=== PATIENT | female | born 1985 | race Caucasian/White ===

== ENCOUNTER 2016-10-24 11:43 | Emergency (ER) | payer SELFPAY ==
[~2016-10-24] VITALS: Ht 157.5 cm; Wt 72.6 kg
[2016-10-24 12:29] LABS: BILIRUBIN,URINE NEGATIVE (NEG); GLUCOSE,URINE NEGATIVE (NEG); NITRITE,URINE NEGATIVE (NEG); PH,URINE 5.5; PROTEIN,URINE NEGATIVE (NEG-TRACE); UROBILINOGEN,URINE 0.2 mg/dL (0.2 mg/dL)
[2016-10-24] MEDS ORDERED: IV NORMAL SALINE 1000ML BAG 1,000 ML IV ONE (12:30)
[2016-10-24] MEDS ORDERED: ONDANSETRON PF 4 MG/2 ML VIAL. IV ONE (12:30)
[2016-10-24] MEDS ORDERED: KETOROLAC TROMETHAMINE 30 MG/ML INJ. IV ONE (12:30)
[2016-10-24] MEDS ORDERED: MORPHINE SULFATE 10 MG/ML VIAL. IV ONE (12:30)
--- NOTE | 2016-10-24 12:37 | RAD ---
CT abdomen and pelvis without contrast History: Hematuria, right flank pain since previous day. Comparison: None. Technique: Helical CT of the abdomen and pelvis was performed without intravenous or oral contrast. Axial, sagittal, and coronal reconstructions were obtained. One or more of the following individualized dose reduction techniques were utilized for the study: Automated exposure control Adjustment of mA and/or kV according to patient's size Use of iterative reconstruction technique. Findings: Evaluation of the solid organs is limited by lack of intravenous contrast. Evaluation of enteric structures may be limited by lack of oral contrast. Liver, spleen, pancreas, gallbladder, and bilateral adrenal glands are unremarkable. There is no evidence of bowel obstruction. No free air or significant free fluid is identified in the abdomen or pelvis. Appendix is not confidently identified. Urinary bladder is unremarkable. Bilateral nephrolithiasis is seen. Inferior pole of the right kidney demonstrates nonobstructive stone measuring 2 mm. The left kidney demonstrates presence of 3 nonobstructive stones ranging in size from 3 to 5 mm. Both kidneys demonstrate mildly increased density of the renal pyramids, suggesting medullary nephrocalcinosis. Both ureters are free of stone or obstruction. Impression: 1. No acute abnormality identified in the abdomen or pelvis. 2. Bilateral nonobstructive nephrolithiasis. Medullary nephrocalcinosis.
[2016-10-24 12:38] LABS: BASO % 0 % (0-3); EOS % 2 % (0-3); HEMATOCRIT 38.7 % (36.0-47.0); HEMOGLOBIN 13.4 g/dL (12.0-15.5); LYMPH % 16 % (24-48); MEAN CORPUSCULAR HEMOGLOBIN 33 pg (25-35); MEAN CORPUSCULAR HGB CONC 35 g/dL (31-37); MEAN CORPUSCULAR VOLUME 96 fL (79-100); MONO % 8 % (0-9); NEUT % 74 % (31-73); PLATELET COUNT 248 x10^3/uL (140-400); RED BLOOD COUNT 4.03 x10^6/uL (3.50-5.40); RED CELL DISTRIBUTION WIDTH 13.1 % (11.5-14.5); WHITE BLOOD COUNT 6.1 x10^3/uL (4.0-11.0)
[2016-10-24 12:39] LABS: CALCIUM 8.8 mg/dL (8.5-10.1); CREATININE 0.7 mg/dL (0.6-1.0); POTASSIUM 3.6 mmol/L (3.5-5.1)
[2016-10-24 12:45] LABS: ALBUMIN 3.4 g/dL (3.4-5.0); ALBUMIN/GLOBULIN RATIO 0.9 (1.0-1.7); TOTAL BILIRUBIN 0.8 mg/dL (0.2-1.0); TOTAL PROTEIN 7.1 g/dL (6.4-8.2)
[2016-10-24 12:50] LABS: BACTERIA,URINE MANY /HPF (0-FEW); RBC,URINE 0 /HPF (0-2); SQUAMOUS EPITHELIAL CELL,UR MANY /LPF
[2016-10-24] MEDS ORDERED: CIPROFLOXACIN 400MG PREMIX 200 ML IV ONE (13:15)
[2016-10-24 13:56] VITALS: BP 120/78
[2016-10-24] MEDS ORDERED: HYDR-971 PO (14:16)
[2016-10-24] MEDS ORDERED: CIPR500T94 PO (14:16)
[2016-10-24] MEDS ORDERED: TAMS0.4C97 PO (14:16)
[2016-10-24] MEDS ORDERED: ONDA4TAB10 SL (14:16)
--- NOTE | 2016-10-24 14:16 | PHYS DOC ---
Past Medical History Past Medical History: Hypertension, Kidney Stone, UTI Past Surgical History: No Surgical History Alcohol Use: None Drug Use: None Adult General Chief Complaint Chief Complaint: FLANK PAIN HPI HPI Patient is a 30 year old female with history of hypertension, kidney stones, UTIs, who presents today with 9 out of 10 sharp right flank pain that began yesterday. Patient is also complaining of nausea with no vomiting. Denies any fever. She is also complaining of dysuria. Denies any hematuria or urgency. Denies any chance she is . She states she is from [place]. Review of Systems Review of Systems Constitutional: See history of present illness Eyes: Denies change in visual acuity, redness, or eye pain [] HENT: Denies nasal congestion or sore throat [] Respiratory: Denies cough or shortness of breath [] Cardiovascular: No additional information not addressed in HPI [] GI: Denies abdominal pain, nausea, vomiting, bloody stools or diarrhea [] : Right flank pain and hematuria Musculoskeletal: Denies back pain or joint pain [] Integument: Denies rash or skin lesions [] Neurologic: Denies headache, focal weakness or sensory changes [] Endocrine: Denies polyuria or polydipsia [] Current Medications Current Medications Current Medications Medications (Trade) Dose Ordered Sig/Maximus Start Time Stop Time Status Last Admin Dose Admin Ciprofloxacin Lactate 200 ml @ 200 mls/hr 1X ONCE 10/24/16 13:15 10/24/16 14:14 10/24/16 13:15 200 MLS/HR Ketorolac Tromethamine (Toradol) 30 mg 1X ONCE 10/24/16 12:30 10/24/16 12:31 DC 10/24/16 12:29 30 MG Morphine Sulfate 5 mg 1X ONCE 10/24/16 12:30 10/24/16 12:31 DC 10/24/16 12:31 5 MG Ondansetron HCl (Zofran) 4 mg 1X ONCE 10/24/16 12:30 10/24/16 12:31 DC 10/24/16 12:29 4 MG Sodium Chloride 1,000 ml @ 1,000 mls/hr 1X ONCE 10/24/16 12:30 10/24/16 13:29 DC 10/24/16 12:29 1,000 MLS/HR Allergies Allergies Allergies Coded Allergies Type Severity Reaction Last Updated Verified No Known Drug Allergies 10/24/16 No Physical Exam Physical Exam Constitutional: Well developed, well nourished, no acute distress, non-toxic appearance. [] HENT: Normocephalic, atraumatic, bilateral external ears normal, oropharynx moist, no oral exudates, nose normal. [] Eyes: PERRLA, EOMI, conjunctiva normal, no discharge. [] Neck: Normal range of motion, no tenderness, supple, no stridor. [] Cardiovascular:Heart rate regular rhythm, no murmur [] Lungs & Thorax: Bilateral breath sounds clear to auscultation [] Abdomen: Bowel sounds normal, soft, no tenderness, no masses, no pulsatile masses. [] Skin: Warm, dry, no erythema, no rash. [] Back: No tenderness, moderate right CVA tenderness. [] Extremities: No tenderness, no cyanosis, no clubbing, ROM intact, no edema. [] Neurologic: Alert and oriented X 3, normal motor function, normal sensory function, no focal deficits noted. [] Psychologic: Affect normal, judgement normal, mood normal. [] Current Patient Data Vital Signs Vital Signs Date Time Temp Pulse Resp B/P (MAP) Pulse Ox O2 Delivery O2 Flow Rate FiO2 10/24/16 13:26 80 13 126/85 (99) 96 Room Air 10/24/16 11:53 98.4 98.4 Lab Values Laboratory Tests Test 10/24/16 11:17 10/24/16 12:09 10/24/16 12:20 POC Urine HCG, Qualitative Hcg negative (Negative) Urine Collection Type Unknown Urine Color Yellow Urine Clarity Cloudy Urine pH 5.5 Urine Specific [place] 1.025 Urine Protein Negative mg/dL (NEG-TRACE) Urine Glucose (UA) Negative mg/dL (NEG) Urine Ketones (Stick) Negative mg/dL (NEG) Urine Blood Negative (NEG) Urine Nitrite Negative (NEG) Urine Bilirubin Negative (NEG) Urine Urobilinogen Dipstick 0.2 mg/dL (0.2 mg/dL) Urine Leukocyte Esterase Moderate (NEG) Urine RBC 0 /HPF (0-2) Urine WBC 5-10 /HPF (0-4) Urine Squamous Epithelial Cells Many /LPF Urine Bacteria Many /HPF (0-FEW) Urine Mucus Marked /LPF White Blood Count 6.1 x10^3/uL (4.0-11.0) Red Blood Count 4.03 x10^6/uL (3.50-5.40) Hemoglobin 13.4 g/dL (12.0-15.5) Hematocrit 38.7 % (36.0-47.0) Mean Corpuscular Volume 96 fL (79-100) Mean Corpuscular Hemoglobin 33 pg (25-35) Mean Corpuscular Hemoglobin Concent 35 g/dL (31-37) Red Cell Distribution Width 13.1 % (11.5-14.5) Platelet Count 248 x10^3/uL (140-400) Neutrophils (%) (Auto) 74 % (31-73) H Lymphocytes (%) (Auto) 16 % (24-48) L Monocytes (%) (Auto) 8 % (0-9) Eosinophils (%) (Auto) 2 % (0-3) Basophils (%) (Auto) 0 % (0-3) Neutrophils # (Auto) 4.5 x10^3uL (1.8-7.7) Lymphocytes # (Auto) 1.0 x10^3/uL (1.0-4.8) Monocytes # (Auto) 0.5 x10^3/uL (0.0-1.1) Eosinophils # (Auto) 0.1 x10^3/uL (0.0-0.7) Basophils # (Auto) 0.0 x10^3/uL (0.0-0.2) Sodium Level 137 mmol/L (136-145) Potassium Level 3.6 mmol/L (3.5-5.1) Chloride Level 102 mmol/L (98-107) Carbon Dioxide Level 25 mmol/L (21-32) Anion Gap 10 (6-14) Blood Urea Nitrogen 8 mg/dL (7-20) Creatinine 0.7 mg/dL (0.6-1.0) Estimated GFR (Cockcroft-Gault) 97.0 BUN/Creatinine Ratio 11 (6-20) Glucose Level 94 mg/dL (70-99) Calcium Level 8.8 mg/dL (8.5-10.1) Total Bilirubin 0.8 mg/dL (0.2-1.0) Aspartate Amino Transferase (AST) 12 U/L (15-37) L Alanine Aminotransferase (ALT) 21 U/L (14-59) Alkaline Phosphatase 90 U/L (46-116) Total Protein 7.1 g/dL (6.4-8.2) Albumin 3.4 g/dL (3.4-5.0) Albumin/Globulin Ratio 0.9 (1.0-1.7) L Lipase 91 U/L (73-393) Laboratory Tests 10/24/16 12:20 Laboratory Tests 10/24/16 12:20 EKG EKG [] Radiology/Procedures Radiology/Procedures []PROCEDURE: CT ABDOMEN PELVIS WO CONTRAST CT abdomen and pelvis without contrast History: Hematuria, right flank pain since previous day. Comparison: None. Technique: Helical CT of the abdomen and pelvis was performed without intravenous or oral contrast. Axial, sagittal, and coronal reconstructions were obtained. One or more of the following individualized dose reduction techniques were utilized for the study: Automated exposure control Adjustment of mA and/or kV according to patient's size Use of iterative reconstruction technique. Findings: Evaluation of the solid organs is limited by lack of intravenous contrast. Evaluation of enteric structures may be limited by lack of oral contrast. Liver, spleen, pancreas, gallbladder, and bilateral adrenal glands are unremarkable. There is no evidence of bowel obstruction. No free air or significant free fluid is identified in the abdomen or pelvis. Appendix is not confidently identified. Urinary bladder is unremarkable. Bilateral nephrolithiasis is seen. Inferior pole of the right kidney demonstrates nonobstructive stone measuring 2 mm. The left kidney demonstrates presence of 3 nonobstructive stones ranging in size from 3 to 5 mm. Both kidneys demonstrate mildly increased density of the renal pyramids, suggesting medullary nephrocalcinosis. Both ureters are free of stone or obstruction. Impression: 1. No acute abnormality identified in the abdomen or pelvis. 2. Bilateral nonobstructive nephrolithiasis. Medullary nephrocalcinosis. DICTATED and SIGNED BY: ELISSA AVILA MD DATE: 10/24/16 6365 CC: BA NEIL APRN; NON,STAFF; UNKNOWN PCP NAME ~ Course & Med Decision Making Course & Med Decision Making Pertinent Labs and Imaging studies reviewed. (See chart for details) This is a 30-year-old female patient who presents today with right flank pain and dysuria. She has history of UTI and kidney stones. She is from the [place]. Urine with moderate amount of leukocytes no blood, many bacteria and many squamous cells epithelium. This urine could be contaminated unfortunately we have no way of following up with cultures right now due to printer and communication issues with lab. Patient will be put on Cipro, Flomax, hydrocodone and Zofran. CT of the abdomen and pelvic with no acute findings but noted for bilateral nonobstructive nephrolithiasis and medullary nephrocalcinosis. Patient will be discharged with instructions to follow-up with her own doctor in [place] on the provided doctor locally. She was provided return precautions and discharged in stable condition. Her blood pressure was also elevated at 147/107. She is noted neurological symptoms. Has history of hypertension. She was advised to take her BP medicine for today as soon as she gets home. Dragon Disclaimer Klutch Disclaimer This electronic medical record was generated, in whole or in part, using a voice recognition dictation system. Departure Departure Impression: Primary Impression: Kidney stones Additional Impressions: Urinary tract infection Nausea alone Accelerated hypertension Disposition: HOME, SELF-CARE Condition: STABLE Referrals: UNKNOWN PCP NAME (PCP) Follow-up with your own doctor as soon as possible Patient Instructions: Hypertension, Kidney Stones, Urinary Tract Infection Additional Instructions: You seen for right flank pain and dysuria. Your urine has infection. Your CT of the abdomen and pelvic is noted for kidney stones in the kidney. Typically this do not caution issues unless they start moving. We highly recommend you follow- up with your own doctor or the provided doctor in the next 7 days. Take the prescribed medicines as ordered. Come back to the ED symptoms worsen. Your blood pressure was also high. Ensure you take your blood pressure medicine as soon as you get home if you have not taken it today. Follow-up with your doctor for this as soon as possible. Scripts Ondansetron (ZOFRAN ODT) 4 Mg Tab.rapdis 1 TAB SL Q8HRS, #10 TAB Prov: MUTUNGABA SPECIAL PROCEDURES TECHNOLOGIST 10/24/16 Hydrocodone/Apap 5-325 (NORCO 5-325 TABLET) 1 Each Tablet 1-2 TAB PO Q4-6HRS, #20 TAB Prov: MUTUNGA,BA SPECIAL PROCEDURES TECHNOLOGIST 10/24/16 Tamsulosin Hcl (FLOMAX) 0.4 Mg Cap.er.24h 1 CAP PO DAILY, #7 CAP 0 Refills Prov: MUTUNGABA SPECIAL PROCEDURES TECHNOLOGIST 10/24/16 Ciprofloxacin Hcl (CIPRO) 500 Mg Tablet 1 TAB PO BID, #14 TAB Prov: BA NEIL APRN 10/24/16 Problem Qualifiers Additional Impressions: Urinary tract infection Urinary tract infection type: acute cystitis Hematuria presence: without hematuria Qualified Codes: N30.00 - Acute cystitis without hematuria BA NEIL APRN October 24, 2016 14:16
[2016-10-24] MEDS ORDERED: CIPROFLOXACIN 400MG PREMIX 200 ML IV SCH (21:00)
--- NOTE | 2016-10-29 16:45 | VNOTE ---
CALL BACK NOTE CALL BACK Microbiology 10/24/16 Urine Culture - Final, Complete 10/24/16 Urine Culture Result 1 (CHRIS) - Final, Complete 10/24/16 Urine Culture Result 2 (CHRIS) - Final, Complete 10/24/16 Antimicrobic Susceptibility - Final, Complete Patient was treated for UTI with Cipro, her urine culture shows she is resistant to Cipro. Attempted to call patient. Her phone is not going through. BA NEIL APRN Oct 29, 2016 16:45
== END 2016-10-24 14:30 | disposition home or self-care (01) ==
LOC: ER 11:43
DX: N20.0 Calculus of kidney (principal); N30.00 Acute cystitis without hematuria; I10 Essential (primary) hypertension; R11.0 Nausea
CPT/HCPCS: 36415; 74176; 80053; 81001; 81025; 83690; 85027; 87086; 87186; 96361; 96365; 96375; 99285; J0744; J1885; J2270; J2405; J7030